=== PATIENT | female | born 1995 | race Caucasian/White ===

== ENCOUNTER → 2016-08-26 06:36 | Day surgery (SDC) | payer BC ==
--- NOTE | 2016-08-18 13:50 | HP ---
PREOPERATIVE HISTORY AND PHYSICAL: DATE OF ADMISSION/SURGERY: 08/26/16 - [facility] PROCEDURE: Excision of mass, right scapula. CHIEF COMPLAINT: Right scapular pain. HISTORY OF PRESENT ILLNESS: Janiya is a 20-year-old female who presents to the clinic for right scapular pain due to an osteochondroma times several years. She has intermittent episodes of inflammation that causes pain and grinding in her scapula. She has failed conservative therapy and therefore, has agreed to undergo an excision of mass in the right scapula with Dr. Posey on 08/26/16. PAST MEDICAL HISTORY: Depression. PAST SURGICAL HISTORY: [place] tooth extraction in the summer of 2009. MEDICATIONS: 1. Citalopram 20 mg daily. 2. Multivitamins per her once by mouth daily. 3. Biotin 1 mg daily. ALLERGIES: No known drug allergies. FAMILY HISTORY: Positive for diabetes, heart disease, high blood pressure, stroke, cancer and lupus. SOCIAL HISTORY: She lives with her parents and siblings. She works as a biomedical scientist. She denies tobacco or alcohol use. She exercises regularly. She is right hand dominant. REVIEW OF SYSTEMS: A 14-point review of systems was reviewed with the patient and positive for the current complaint, otherwise negative. Denies chest pain, shortness of breath, history of PE or DVT, or history of bleeding disorder or prior complications with anesthesia. PHYSICAL EXAMINATION GENERAL: A well-developed, well-nourished 20-year-old female in no acute distress, alert and oriented x3, appropriate mood and affect. VITAL SIGNS: Height 65.5, weight 132. Pulse 78, blood pressure 125/90, respiratory rate 16, temperature 96.7. BMI 21.6. HEENT: Normocephalic atraumatic. PERRLA. Throat clear. NECK: Supple. PULMONARY: Lungs are clear to auscultation bilaterally. No wheezing, rhonchi, or rales. CARDIAC: Regular rate and rhythm. S1 and S2. No murmurs, gallops, rubs, or edema. ABDOMEN: Positive bowel sounds, soft and nontender. MUSCULOSKELETAL: Right upper extremity skin is intact with no obvious deformity. Palpable mass in the inferior aspect of the medial scapula is tender to palpation. Full range of motion of the shoulder to include external rotation to 75, internal rotation to T10. +5/5 strength on rotator cuff testing. Negative Neer's, Speed, Alvarenga, Fuentes, and Micanopy. +2 radial pulse. Sensation intact to light touch distally. NEUROLOGIC: Alert and oriented x3. Cranial nerves are grossly intact. Sensation is intact to light touch distally. STUDIES: Multiple view x-rays of the right shoulder and MRI revealed evidence of an osteochondroma in the inferior aspect of the medial border of the scapula. IMPRESSION: Right scapula osteochondroma. PLAN: The patient is scheduled to undergo an excision of mass of right scapula with Dr. Posey on 08/26/16. She will return to the office 10 to 14 days postop for followup and suture removal. Percocet will be used postoperatively for pain management. GUCCI [place] [id number]/[facility] #: [id number] MTDRosa
[2016-08-26 06:34] LABS: Manual Entry Verification CAR0052; UR Preg Internal Control QC Line Present; UR Preg Kit Lot# 6030156
[~2016-08-26 06:36] MED LIST: Buffered Lidocaine 1% SYRIN* 3 ML/SYR SYRINGE INTRADERM ONE; Bupivacaine 0.25% SDV* 30 ML ONE; Dexamethasone IV* 4 MG/ML 1 ML (4 MG) ONE; DiMENhydriNATE IV* 50 MG/ML VIAL IV PUSH PRN; Ketorolac INJ* 30 MG/ML 1 ML VIAL ONE; Lidocaine 2% PF* 5 ML VIAL ONE; Propofol* 10 MG/ML 20 ML BTL IV PUSH ONE; Sodium Citrate/Citric Acid* 15 ML UDC ONE; Sodium Citrate/Citric Acid* 15 ML UDC PO ONE; Succinylcholine* 20 MG/ML 10 ML VIAL ONE; ceFAZolin 2 GM PREMIX(*) 2 GM/50 ML BAG IVPB ONE; fentaNYL* 50 MCG/ML 2 ML VIAL (100 MCG VIAL) ONE; oxyCODONE/Acetamin 5/325 MG* TAB ONE
--- NOTE | 2016-08-26 09:52 | RAD ---
Indication: Chest pain. Single frontal view of the chest performed at 0930 hours was reviewed. No prior study is available for comparison. No mediastinal shift is noted. Heart is of normal size and configuration. Lung canales appear clear. No definite pneumothorax is identified. IMPRESSION: NO ACTIVE CARDIOPULMONARY DISEASE IS NOTED.
[2016-08-26] MEDS: fentaNYL* 50 MCG/ML 2 ML VIAL (100 MCG VIAL) IV PRN ×2 (10:13→10:42)
[2016-08-26 11:11] VITALS: BP 110/80
--- NOTE | 2016-08-27 05:10 | OP ---
DATE OF OPERATION: 08/26/16 [facility] DATE OF : 89 SURGEON: Sweetie Posey MD BANQUET STEWARDESS: GUCCI Larry. An assistant financial accountant was needed for the entirety of case to help with positioning, retraction, and was utilized throughout all portions. ANESTHESIOLOGIST: Keegan Fields DO ANESTHESIA: General. PRE-OP DIAGNOSES: Right scapula osteochondroma and scapula bursitis. POST-OP DIAGNOSES: Right scapula osteochondroma and scapula bursitis. OPERATIVE PROCEDURE: Open excision of right osteochondroma, which was approximately 2.5 cm x 2 cm with a depth of about 2 cm. COMPLICATIONS: None. ESTIMATED BLOOD LOSS: 50. INDICATIONS: Janiya Vinson is a 20-year-old female who has had a scapular dyskinesia and bursitis for some time. She had an x-ray that demonstrated an osteochondroma, which appeared benign in appearance. She had an MRI which again demonstrated this was benign in appearance. After risks and benefits of surgery versus nonoperative treatment, she is elected to proceed with open removal of the osteochondroma. Risks and benefits were discussed at length included but are not limited to, bleeding, infection, damage to nerves, vessels , surrounding structures, wound nonhealing, persistent pain, need for further surgery, risk of anesthesia, stiffness, persistent pain, scarring, incomplete relief of symptoms, need for further surgery, risk of DVT, and risk of anesthesia. She is elected to proceed. DESCRIPTION OF PROCEDURE: The patient was greeted in the preoperative area by the attending surgeon. Correct extremity was marked and consent was confirmed. The patient was brought back to the operating suite, where she was placed in the supine position on the operating table. She then underwent endotracheal intubation and general anesthesia, which she tolerated without difficulty, after which the patient was then carefully positioned in the prone position, supported by the appropriate amount of cushioning and her head was secured and monitoring by anesthesia. The area of interest was draped off using 10:10 and unsterile sticky U-drape including the right arm. The right scapula was then prepped and draped along with the arm with pre-prep of chlorhexidine soap and alcohol, wiped with final prep of ChloraPrep. After appropriate surgical pause indicating site, side, procedure, administration of antibiotics; a longitudinal incision in line with the inferior border of the scapula was then made using a 15 blade. The soft tissues were carefully dissected using the Bovie device and hemostasis was obtained at all times using electrocautery device. Fascial layer was identified and marked for later closure. The inferomedial border of the scapula was then identified. The rhomboids were carefully released off the edge with care to leave the cuff for repair back. The dissection was tracked up to approximately 5 cm from the tip of the scapula and the stalk was palpated. The small osteochondroma was then fully developed. This was palpated with soft tissue protectors around it as well as deep retractors with care not to damage any neurovascular structures nor the ribs or lungs. The sagittal saw then used to remove the osteochondroma at the base of the stalk. It was found to be about 2 cm in depth with at least 2.5 x 2 footprint. This was removed in its entirety. The rongeur and the rasp were then used to smooth down the edges and make sure all portions of the osteochondroma were removed. All the tissue samples were then kept on the back table and sent for pathology. Once this was completed rasp down, there was irritation and the shoulder was taken through some range of motion to determine that there was no more irritation from the mass. The wounds were copiously irrigated with sterile saline. The rhomboids were repaired to the scapula and the cuff using 0 Vicryl. The small fascial layer was closed with running 0 Vicryl, the subcutaneous tissue with 2-0, and the skin with 4-0 Monocryl. Sterile dressings were applied. The wound was injected with 0.25% Marcaine plain for postoperative pain control. She was placed with sterile dressings and a Cryo/Cuff and placed in a sling. She was awoken from anesthesia and transferred to the PACU in stable condition. POSTOPERATIVE PLAN: She will be nonweightbearing, but she will be allowed range of motion, all passive for the first 3 to 4 weeks, and she will be discharged on pain medication as well as antibiotics. Her specimen was sent to pathology. We will monitor that. If there is some sign of malignancy, then we will send her to a tumor specialist. DVT prophylaxis was considered, but deferred due to no previous personal or family history. [id number]/[facility] #: [id number] [facility] HOSPITALRosa
== END | disposition home or self-care (01) ==
LOC: OR 06:36
PROVIDERS: ATTEND Orthopaedic Surgery
DX: D16.01 Benign neoplasm of scapula and long bones of right upper limb (principal); M75.51 Bursitis of right shoulder
CPT/HCPCS: 71010; 81025; A9270-GY; J0330; J0690; J1100; J1885; J2704; J3010